=== PATIENT | female | born 1955 | race Caucasian/White ===

== ENCOUNTER 2018-06-03 18:38 | Emergency (ER) | payer BC, OTHER ==
[2018-06-03 18:44] VITALS: BP 92/59
== END 2018-06-03 19:46 | disposition left against medical advice (07) ==
LOC: ED 18:38
DX: R42 Dizziness and giddiness (principal); Z53.21 Procedure and treatment not carried out due to patient leaving prior to being seen by health care provider
CPT/HCPCS: 99282